=== PATIENT | male | born 1965 | race Caucasian/White ===

== ENCOUNTER 2021-03-10 18:35 | Emergency (ER) | payer OTHER ==
[2021-03-10 18:44] VITALS: BP 169/91; PULSE 78; TEMP 97.6; BMI 19.8
[2021-03-10] MEDS ORDERED: predniSONE 20 MG TABLET (UD) PO ONE (18:56)
[2021-03-10] MEDS ORDERED: ALBUTEROL SO4 2.5/IPRATROPIUM 0.5 INH SOL 3 ML VIAL.NEB. NEB ONE (20:04)
[2021-03-10] MEDS ORDERED: predniSONE 20 MG TABLET (UD) ONE (20:04)
[2021-03-10] MEDS: ALBUTEROL SO4 2.5/IPRATROPIUM 0.5 INH SOL 3 ML VIAL.NEB. NEB SCH (20:32)
[2021-03-11 14:07] LABS: SARS-CoV-2 NAA Detected (Not Detected)
== END 2021-03-10 23:45 | disposition home or self-care (01) ==
LOC: JER 18:35
PROC: 3E0F7GC Introduction of Other Therapeutic Substance into Respiratory Tract, Via Natural or Artificial Opening (ICD-10-PCS; principal; 2021-03-10)
DX: U07.1 COVID-19 (principal)
CPT/HCPCS: 87804; 87807; 99284-25; C9803-CS; U0003; U0005